=== PATIENT | male | born 1975 | race Two or more races ===

== ENCOUNTER 2017-11-13 14:40 | Emergency (ER) | payer OTHER ==
[2017-11-13] MEDS ORDERED: LORazepam INJ* 2 MG/ML 1 ML VIAL IV ONE (16:51)
[2017-11-13] MEDS ORDERED: Ibuprofen TAB* 600 MG PO ONE (16:51)
[2017-11-13] MEDS ORDERED: LORazepam TAB(*) 1 MG PO ONE (17:30)
--- NOTE | 2017-11-13 17:44 | RAD ---
INDICATION: Cervical spine pain began 2 days ago without preceding injury. Radiation to the LEFT hand. Numbness. COMPARISON: No relevant prior exams available on the [facility] [place] [place] PACS for comparison. TECHNIQUE: Multidetector CT images foramen magnum to lung apices without contrast. Multiplanar reformation. REPORT: Normal vertebral alignment accounting for exam positioning without spondylolisthesis or subluxation at any level. Negative for cervical vertebral body or posterior element fracture. Negative for paravertebral hematoma. Multilevel degenerative spondylosis. At C3-C4 there is moderate disc space narrowing and mild dorsal disc osteophyte complex with mild resulting impression on the thecal sac. Uncinate process spurring results in mild bilateral foraminal stenosis. At C4-C5 there is mild disc space narrowing and vertebral endplate osteophytosis. Small dorsal disc osteophyte complex with only slight impression on the thecal sac. Uncinate process spurring results in slight RIGHT osseous foraminal stenosis. At C5-C6 there is moderate disc space narrowing and mild vertebral endplate osteophytosis. Mild dorsal disc osteophyte complex results in slight impression on the thecal sac. Uncinate process spurring results in mild LEFT foraminal stenosis. At C6-C7 there is moderate disc space narrowing and vertebral endplate osteophytosis with moderate dorsal disc osteophyte complex which results in mild impression on the ventral margin of the thecal sac. Uncinate process spurring results in mild LEFT foraminal stenosis. IMPRESSION: Multilevel degenerative spondylosis with associated uncinate process spurring with predominant mild resulting central canal and foraminal stenosis as described level by level.
[2017-11-13] MEDS ORDERED: predniSONE TAB* 20 MG PO ONE (18:52)
[2017-11-13] MEDS ORDERED: HYDROcodone/ACETAMIN 5-325 MG* 1 TAB PO ONE (18:52)
[2017-11-13 20:01] VITALS: BP 142/99
--- NOTE | 2017-11-13 21:30 | ED ---
Kana Madrigal Julia, scribed for Rome Westfall MD on 11/13/17 at 1541 . Neurological HPI - HPI Summary HPI Summary: This patient is a 41 year old M presenting to [facility] accompanied by his with a chief complaint of numbness and tingling in L forearm and 1st through 4th fingers for the past three days. Patient reports weakness in L hand and left sided neck pain that radiates to scapula and left upper back. Patient denies recent injury. The patient rates the pain 7/10 in severity. Symptoms unchanged by 600mg of Motrin taken at 9:00am today. Pt has history of herniated disc in lower back. He states he has been holding his son more than often and thinks that may be contributing to his pain. - History of Current Complaint Chief Complaint: EDNeurologicalDeficit Stated Complaint: LT ARM NUMBNESS Time Seen by Provider: 11/13/17 15:20 Hx Obtained From: Patient Onset/Duration: Started days ago Timing: Constant Current Severity: Worse Since: - gradually worsening Pain Intensity: 7 Pain Scale Used: 0-10 Numeric Character: Paresthesia - tingling and numbness Aggravating: Nothing Alleviating: Nothing Associated Signs and Symptoms: Positive: Pain - weakness in L hand and left sided neck pain that radiates to scapula and left upper back - Allergy/Home Medications Allergies/Adverse Reactions: Allergies Allergy/AdvReac Type Severity Reaction Status Date / Time ketorolac [From Toradol] AdvReac Diarrhea Verified 11/13/17 17:23 prochlorperazine AdvReac Unknown Verified 11/13/17 15:27 [From Compazine] Reaction Details Home Medications: Home Medications Atenolol TAB* [Tenormin TAB* 25 MG] 12.5 mg PO DAILY 11/13/17 [History Confirmed 11/13/17] Ibuprofen TAB* [Motrin TAB* 600 MG] 600 mg PO Q8H PRN 11/13/17 [History Confirmed 11/13/17] Tamsulosin CAP* [Flomax CAP*] 0.4 mg PO DAILY 11/13/17 [History Confirmed ] PMH/Surg Hx/FS Hx/Imm Hx Cardiovascular History: Reports: Hx Atrial Fibrillation, Other Cardiovascular Problems/Disorders - HDL History: Reports: Other Problems/Disorders - hydronephritis Musculoskeletal History: Reports: Hx Back Problems - herniated disc Infectious Disease History: No Infectious Disease History: Denies: Traveled Outside the [place] in Last 30 Days - Family History Known Family History: Positive: Cardiac Disease - HDL, Diabetes, Other - CA - Social History Alcohol Use: Rare Substance Use Type: Reports: None Smoking Status (MU): Former Smoker Review of Systems Positive: Myalgia - L neck and shoulder Positive: Weakness - L hand, Paresthesia - tingling in l forearam and fingers, Numbness - l forearm and fingers All Other Systems Reviewed And Are Negative: Yes Physical Exam - Summary Physical Exam Summary: Appearance: The patient is well-nourished in no acute distress and in no acute pain. Skin: The skin is warm and dry and skin color reflects adequate perfusion. HEENT: The head is normocephalic and atraumatic. The pupils are equal and reactive. The conjunctivae are clear and without drainage. Nares are patent and without drainage. Mouth reveals moist mucous membranes and the throat is without erythema and exudate. The external ears are intact. The ear canals are patent and without drainage. The tympanic membranes are intact. Neck: the neck is supple with full range of motion and non-tender. There are no carotid bruits. There is no neck vein distension. Respiratory: Chest is non-tender. Lungs are clear to auscultation and breath sounds are symmetrical and equal. Cardiovascular: Heart is regular rate and rhythm. There is no murmur or rub auscultated. There is no peripheral edema and pulses are symmetrical and equal. Abdomen: The abdomen is soft and non-tender. There are normal bowel sounds heard in all four quadrants and there is no organomegaly palpated. Musculoskeletal: There is tenderness with spasm in the L rhomboid area. Extremities are non-tender with full range of motion. There is good capillary refill. There is no peripheral edema or calf tenderness elicited. Neurological: Patient is alert and oriented to person, place and time. The patient has symmetrical motor strength in all four extremities. Cranial nerves are grossly intact. Deep tendon reflexes are symmetrical and equal in all four extremities. Psychiatric: The patient has an appropriate affect and does not exhibit any anxiety or depression. Triage Information Reviewed: Yes Vital Signs On Initial Exam: Initial Vitals Temp Pulse Resp BP Pulse Ox 98.4 F 79 17 142/91 97 02/11/18 14:50 11/13/17 14:50 11/13/17 14:50 11/13/17 14:50 11/13/17 14:50 Vital Signs Reviewed: Yes Diagnostics - Vital Signs Vital Signs Temp Pulse Resp BP Pulse Ox 11/13/17 14:50 98.4 F 79 17 142/91 97 - Laboratory Lab Statement: Any lab studies that have been ordered have been reviewed, and results considered in the medical decision making process. - CT C-Spine CT Interpretation Completed By: Radiologist - Multilevel degenerative spondylosis with associated uncinate process spurring with predominant mild resulting central canal and foraminal stenosis as described level by level. ED Physician has reviewed this report. - EKG 1543 Cardiac Rate: NL - at 77 BPM EKG Rhythm: Sinus Rhythm EKG Interpretation: early repolarization Course/Dx - Course Course Of Treatment: Mr. Roy presented with numbness in his left thumb, index and middle fingers without weakness. He also had pain and tenderness in the left side of his neck. No known injury. He was found to have significant DDD and foraminal narrowing at C6-7 on the left. I gave him a short course of steroids as a temporary measure and recommended close F/U. He will likely need an MRI at some point. - Diagnoses Provider Diagnoses: Cervical radiculopathy Discharge - Discharge Plan Condition: Stable Disposition: HOME Prescriptions: predniSONE TAB* [Deltasone TAB*] 40 mg PO DAILY #6 tab Patient Education Materials: Cervical Radiculopathy (ED) Referrals: [facility] - Adan CUELLAR [Primary Care Provider] - 1 Week Additional Instructions: A prescription for Prednisone is provided. RETURN TO THE EMERGENCY DEPARTMENT FOR CHANGING OR WORSENING SYMPTOMS. The documentation as recorded by the Kana barrera Julia accurately reflects the service I personally performed and the decisions made by me, Rome Westfall MD.
== END 2017-11-13 20:01 | disposition home or self-care (01) ==
LOC: ED 14:40
DX: M54.12 Radiculopathy, cervical region (principal); I48.91 Unspecified atrial fibrillation; E78.5 Hyperlipidemia, unspecified; Z87.891 Personal history of nicotine dependence
CPT/HCPCS: 72125; 93005; 96374; 99282; A9270-GY; J7512